=== PATIENT | female | born 1990 | race American Indian/Alaskan Native ===

== ENCOUNTER 2016-06-06 08:51 | Emergency (ER) | payer BC ==
[2016-06-06] MEDS ORDERED: SUBLIMAZE IV ONE (09:43)
[2016-06-06] MEDS ORDERED: DIPRIVAN 10 MG/ML IV ONE (09:43)
--- NOTE | 2016-06-06 09:53 | XRay Report ---
Single view right shoulder: History: Obvious deformity. Findings: There is anterior dislocation noted. The humeral head is at anterior inferior aspect of the glenoid. No fracture. Next Impression: Include dislocation.
--- NOTE | 2016-06-06 10:55 | XRay Report ---
Right shoulder single view: History: Postreduction. Findings: Satisfactory alignment is noted of the humeral head with glenoid. No fracture. Impression: Satisfactory alignment of humeral head with glenoid.
--- NOTE | 2016-06-06 11:49 | Emergency Department Report ---
ED General Adult HPI - General Chief complaint: Extremity Injury, Upper Stated complaint: DISLOCATED RT SHOULDER Time Seen by Provider: 06/06/16 09:34 Source: patient, EMS Mode of arrival: Stretcher Limitations: No Limitations - History of Present Illness Initial comments: Patient states that she reached over her head and apparently dislocated her shoulder. She states the last time this happened was about 7 years ago but it had happened several times before that. She has never seen an orthopedist. She reports no other injury or problem. -: Sudden Location: right, upper extremity Radiation: non-radiation Severity scale (0 -10): 6 Quality: dull Consistency: constant Improves with: none Worsens with: movement Associated Symptoms: denies other symptoms Treatments Prior to Arrival: none - Related Data Previous Rx's Medication Instructions Recorded Last Taken Type Naproxen [Naprosyn TAB] 375 mg PO BID PRN #10 tablet 06/06/16 Unknown Rx Allergies Allergy/AdvReac Type Severity Reaction Status Date / Time No Known Allergies Allergy Unverified 06/06/16 08:57 ED Review of Systems ROS: Stated complaint: DISLOCATED RT SHOULDER Other details as noted in HPI Comment: All other systems reviewed and negative ED Past Medical Hx - Past Medical History Previous Medical History?: Yes Hx Seizures: Yes - Surgical History Past Surgical History?: No - Social History Smoking Status: Never Smoker Substance Use Type: None - Medications Home Medications: Home Medications Medication Instructions Recorded Confirmed Last Taken Type Naproxen [Naprosyn TAB] 375 mg PO BID PRN #10 tablet 06/06/16 Unknown Rx ED Physical Exam - General Limitations: No Limitations General appearance: alert, in no apparent distress - Head Head exam: Present: atraumatic, normocephalic - Eye Eye exam: Present: normal appearance - ENT ENT exam: Present: mucous membranes moist - Neck Neck exam: Present: normal inspection - Respiratory Respiratory exam: Present: normal lung sounds bilaterally. Absent: respiratory distress - Cardiovascular Cardiovascular Exam: Present: regular rate, normal rhythm. Absent: systolic murmur, diastolic murmur, rubs, gallop - GI/Abdominal GI/Abdominal exam: Present: soft, normal bowel sounds - Extremities Exam Extremities exam: Present: other (the head of the humerus is anteriorly displaced outside glenoid fossa. Neurovascular exam distally is intact.) - Back Exam Back exam: Present: normal inspection - Neurological Exam Neurological exam: Present: alert, oriented X3 - Psychiatric Psychiatric exam: Present: normal affect, normal mood - Skin Skin exam: Present: warm, dry, intact, normal color. Absent: rash ED Course Vital Signs 06/06/16 06/06/16 06/06/16 09:05 09:11 09:45 Temperature 97.6 F Temperature [ 97.6 F Pre-Procedure] Pulse Rate 80 Pulse Rate [ 84 Intra-Procedure ] Pulse Rate [Pre 80 -Procedure] Respiratory 16 16 Rate Respiratory 18 Rate [Intra- Procedure] Respiratory 16 Rate [Pre- Procedure] Blood Pressure 111/66 Blood Pressure 120/80 [Intra- Procedure] Blood Pressure 111/64 [Pre-Procedure] O2 Sat by Pulse 100 Oximetry O2 Sat by Pulse 100 Oximetry [ Intra-Procedure ] O2 Sat by Pulse 100 Oximetry [Pre- Procedure] - Orthopedic Joint Reduction Joint #1 Consent Obtained: verbal consent Time Out Performed: No Side: right Joint Reduction Location: shoulder Analgesia: moderate sedation Shoulder Technique Used (if applicable): other (Modified Raysa) Technique Used: other Post-Reduction Neuro Exam: intact Post-Reduction Vascular Exam: intact Post Reduction X-Ray Obtained: Yes Post Reduction X-Ray Results: reduced Splint Applied: Yes Patient Tolerated Procedure: well Additional Comments: The patient was given 50 g of peritoneal. She rates received a titrated dose of 45 mg of propofol. The shoulder was reduced without difficulty. Procedure was well tolerated. She tolerated sedation well and recovered uneventfully. Critical care attestation.: If time is entered above; I have spent that time in minutes in the direct care of this critically ill patient, excluding procedure time. ED Disposition Clinical Impression: Anterior dislocation of right shoulder Qualifiers: Encounter type: initial encounter Qualified Code(s): S43.014A - Anterior dislocation of right humerus, initial encounter Disposition: DISCHARGED TO HOME OR SELFCARE Is pt being admited?: No Does the pt Need Aspirin: No Condition: Stable Instructions: Shoulder Dislocation (ED) Additional Instructions: Up with orthopedist. Rx as needed for pain. Sling 24 hours. Avoid excessive stress shoulder. Prescriptions: Naproxen [Naprosyn TAB] 375 mg PO BID PRN #10 tablet PRN Reason: Pain Referrals: PRIMARY CARE, [Primary Care Provider] - 3-5 Days ALL MICHAUD MD [Staff Physician] - 3-5 Days Time of Disposition: 11:50
[2016-06-06 12:19] VITALS: BP 111/68
== END 2016-06-06 12:18 | disposition home or self-care (01) ==
LOC: ED 08:51
DX: S43.014A Anterior dislocation of right humerus, initial encounter (principal); X58.XXXA Exposure to other specified factors, initial encounter; Y93.89 Activity, other specified; Y99.9 Unspecified external cause status; Y92.89 Other specified places as the place of occurrence of the external cause
CPT/HCPCS: 23655; 73020; 96374; 96375; 99284; J2704; J3010